=== PATIENT | male | born 1960 | race Hispanic/Latino ===

== ENCOUNTER 2021-11-14 09:28 | Emergency (ER) | payer SELFPAY ==
--- NOTE | 2021-11-14 09:30 | ED.SKABFB ---
HPI - Skin/Abscess/Foreign Bdy General Chief complaint: Skin/Abscess/Foreign Body Stated complaint: Rash on Hands Time Seen by Provider: 11/14/21 09:29 Source: patient Mode of arrival: ambulatory Limitations: no limitations History of Present Illness HPI narrative: Mr. Puentes is a 61-year-old male patient presenting to the clinic today with complaints of a rash on bilateral hands. He reports he has had this rash for a couple months to bilateral hands. States the rash itchs and his skin has been spliting open. Related Data Home Medications Medication Instructions Recorded Confirmed No Home Medications 11/14/21 11/14/21 Allergies Allergy/AdvReac Type Severity Reaction Status Date / Time No Known Allergies Allergy Verified 11/14/21 09:46 Review of Systems Review of Systems: Pertinent positives per HPI. Patient denies any fever, chills, headache, visual changes, dizziness, cough, runny nose, sore throat, shortness of breath, chest pain, palpitations, nausea, vomiting, diarrhea, constipation, abdominal pain, or any urinary issues. PMFSH Comments At the time of my signature, I reviewed and agree with the nursing past medical, surgical, social, and family history. There is no relevant family history pertinent to the patient complaint. Exam Narrative: General: Well-developed, well nourished, in no apparent distress Head: Normocephalic, atraumatic. Cardio: Regular rate and rhythm, s1 and s2 normal, no murmur appreciated. Resp: Clear to auscultation bilaterally, no rhonchi, rales, wheezing or rubs. Integumentary: [place], warm, and dry, intact without lesion, mild redness and swelling with itchy crusty/scaly rash to bilateral hands with 2 areas of skin that has split open to the right hand. No sign of infection or redness. Course Course Emergency Course: Portions of this record may have been created with voice recognition software. Level of Care: Express Care Visit Vital Signs Vital signs: Vital signs reviewed MDM - Skin/Abscess/Foreign Bdy MDM Narrative Medical decision making narrative: At the time of visit patient was resting comfortably on the exam table. I suspect the patient has contact dermatitis/eczema to bilateral hands. I will place him on a prescription for some triamcinolone cream and have him twice moisturize his hands daily. Supportive measures were discussed with the patient he voiced understanding of discharge instructions. Differential Diagnosis Differential diagnosis: Likely cellulitis, eczema and contact dermatitis Discharge Plan Discharge Clinical Impression: Dermatitis Patient Disposition: Home, Self-Care Condition: Stable Instructions: Antibiotic Form, Dermatitis (ED) Additional Instructions: Aplicar crema de triamcinolona dos veces al d?a seg?n las indicaciones Hidrata las rudy dos veces al d?a con las lociones Lubriderm, Cetaphil o Aquaphor. Evite cualquier contacto irritante con las rudy/la piel [place] Benadryl de 25 a 50 mg cada 6 horas seg?n sea necesario para la picaz?n Evite ducharse con red cliff o remojarse las rudy en red cliff. Est? atento a los signos y s?ntomas de infecci?n en las llagas abiertas, jan enrojecimiento, aumento de la hinchaz?n, dolor, secreci?n purulenta o jameel. Katharina un seguimiento con cardona PCP en 3 a 5 d?as si los s?ntomas persisten o antes si empeoran Patient Language: Bel[place]ian Prescriptions: New triamcinolone acetonide 0.1 % cream 1 applic topical BID 7 Days Qty: 30 0RF No Action No Home Medications Follow-up/Referrals: PHYSICIAN,INSEAM LEVELER [Primary Care Provider] - Time of Disposition: 09:47 Quality NIHSS Nursing Documentation ED NIHSS nursing documentation: reviewed/agree
[2021-11-14 09:41] VITALS: BP 160/98; PULSE 62; RESP 16; TEMP 36.3; O2SAT 99
== END 2021-11-14 09:50 | disposition home or self-care (01) ==
LOC: EXPCOLL 09:35
PROVIDERS: Emergency Provider Nurse Practitioner Family
DX: L30.9 Dermatitis, unspecified (principal)
CPT/HCPCS: 99203; G0463

== ENCOUNTER 2021-11-20 09:10 | Emergency (ER) | payer SELFPAY ==
[2021-11-20 09:20] VITALS: BP 126/85; PULSE 58; RESP 16; TEMP 36.3; O2SAT 99
--- NOTE | 2021-11-20 09:37 | ED.SKABFB ---
HPI - Skin/Abscess/Foreign Bdy General Chief complaint: Skin/Abscess/Foreign Body Stated complaint: rash john hands Time Seen by Provider: 11/20/21 09:45 Source: patient and RN notes reviewed Mode of arrival: ambulatory Limitations: no limitations History of Present Illness HPI narrative: 61-year-old male presents with concern for rash on bilateral hands and forearms. He reports its itchy, painful. Reports cracks on his hands. Reports he has been using Benadryl every 6 hours, triamcinolone and Lubriderm without relief. Reports the rash has worsened. He denies any new personal care products. 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 Reports he wears gloves at work. MD complaint: rash Related Data Allergies Allergy/AdvReac Type Severity Reaction Status Date / Time No Known Allergies Allergy Verified 11/14/21 09:46 Review of Systems Review of Systems: CONSTITUTIONAL: Denies malaise, chills, sweats, or fever. EYES: Denies redness, or discharge. ENT: Denies rhinorrhea, congestion, swollen lips, swollen tongue CARDIOVASCULAR: Denies chest pain, palpitations, or edema. RESPIRATORY: Denies cough or dyspnea. GASTROINTESTINAL: Denies abdominal pain, nausea, vomiting SKIN: Reports itchy rash, cracked skin on his hands, spreading to his forearms. MUSCULOSKELETAL: Denies joint pain or myalgia. NEUROLOGIC: Denies headache. All systems reviewed & are unremarkable except as noted in HPI and below PMFSH Comments At time of signature, agree with nursing past medical, surgical, social and family history. There is no relevant family history pertinent to the presenting complaint Exam Narrative: GENERAL: Well-appearing, well-nourished, and in no acute distress. HEAD: Normocephalic, atraumatic. EYES: PERRLA, conjunctivae clear ENT: Mucous membranes moist. NECK: Supple. No lymphadenopathy CHEST: Clear to auscultation. No respiratory distress. HEART: Regular rate and rhythm. SKIN: Warm, dry. Plaque, fissures noted to palmar aspect of bilateral hands without papules or vesicles, 2-3 small patches of erythematous plaque noted to bilateral forearms NEURO: Alert and oriented x3. PSYCH: Normal mood and affect Course Course Emergency Course: Patient is aware of diagnosis, understands and agrees to treatment plan. Anticipatory guidance given. Patient agrees to follow-up as directed and is aware of reasons to seek care at the emergency department. Portions of this record may have been created with voice recognition software Level of Care: Express Care Visit Vital Signs Vital signs: Vital Signs Temperature 97.4 F L 11/20/21 09:20 Pulse Rate 58 L 11/20/21 09:20 Respiratory Rate 16 11/20/21 09:20 Blood Pressure 126/85 11/20/21 09:20 Pulse Oximetry 99 11/20/21 09:20 Oxygen Delivery Room Air 11/20/21 09:20 Temperature 97.4 F L 11/20/21 09:20 Pulse Rate 58 L 11/20/21 09:20 Respiratory Rate 16 11/20/21 09:20 Blood Pressure 126/85 11/20/21 09:20 Pulse Oximetry 99 11/20/21 09:20 Oxygen Delivery Room Air 11/20/21 09:20 Reviewed. MDM - Skin/Abscess/Foreign Bdy MDM Narrative Medical decision making narrative: Does not appear at this time to be erythema multiforme, bullous, SJS, TEN; no evidence at this time to suggest RMSF, endocarditis or Lyme disease; patient looks well, nontoxic and is tolerating oral intake; no neurologic signs or symptoms; no headache, photophobia or neck pain; afebrile; appropriate for initial outpatient treatment; discussed the importance of follow-up, patient agrees; question, viral exanthema, contact dermatitis, allergic dermatitis, eczema, urticaria, tinea. No soft palate or uvula edema, no tongue, lip edema or other mucosal involvement, no respiratory compromise, no stridor, no wheezing, no wheezing, no history of syncope, no hypotension, no nausea, vomiting, or diarrhea. Instructed patient to go to nearest ER immediately for any worsening symptoms including but not limi
== END 2021-11-20 09:58 | disposition home or self-care (01) ==
PROVIDERS: Emergency Provider Nurse Practitioner
DX: L30.9 Dermatitis, unspecified (principal)
CPT/HCPCS: 99213; G0463